=== PATIENT | female | born 1985 | race Caucasian/White ===

== ENCOUNTER 2016-10-29 10:51 | Emergency (ER) | payer OTHER ==
[~2016-10-29] VITALS: Ht 157.5 cm; Wt 79.0 kg
[2016-10-29 10:56] VITALS: Ht 157.5 cm; Wt 79.0 kg
--- NOTE | 2016-10-29 11:48 | RADRPT ---
PROCEDURE: XR Chest PA CLINICAL INDICATION: Possible pneumonia TECHNIQUE: An PA radiograph of the chest was submitted. COMPARISON: None. FINDINGS: Cardiovascular: The cardiovascular silhouette appears unremarkable. Lung Manzo: The lung manzo appear clear with no nodule, alveolar infiltrate, or interstitial promi nence evident. Pleural Spaces: There is no pneumothorax or pleural fluid accumulation evident. Osseous Structures: There is a mild levoscoliotic curve to the inferior thoracic spine. Soft Tissues: The soft tissues appear unremarkable. IMPRESSION: 1. The lung manzo and pleural spaces are clear. 2. Mild levoscoliotic curve to the inferior thoracic spine. Physician Kadie Date Time Electronically viewed and signed by Physician Kadie on 10/29/2016 11:47 /
--- NOTE | 2016-10-29 12:01 | ERD ---
ER Documentation Chief Complaint Date/Time DATE: 10/29/16 TIME: 11:59 Chief Complaint COUGH SINCE LAST NIGHT, NOT SMOKING X 3 DAYS HPI This is a 30-year-old female who presents to the emergency room for evaluation of a nonproductive cough for the past 24 hours. She states that she feels like she has a chills and states that she has not had a fever but does state that she felt warm last night. The patient states that she does smoke cigarettes however has not smoked in 3 days. She describes her cough is a dry cough with no exacerbating or relieving factor ROS All systems reviewed and are negative except as per history of present illness. PMhx/Soc Medical and Surgical Hx: pt denies Medical Hx, pt denies Surgical Hx Hx Alcohol Use: No Hx Substance Use: Yes (marijuana ) Hx Tobacco Use: Yes (quit 3 days ago) Smoking Status: Former smoker Physical Exam Vitals Vital Signs Date Time Temp Pulse Resp B/P Pulse Ox O2 Delivery O2 Flow Rate FiO2 10/29/16 10:56 98.3 79 18 131/79 99 Physical Exam Const: No acute distress Head: Atraumatic Eyes: Normal Conjunctiva ENT: Normal External Ears, Nose and Mouth. Neck: Full range of motion..~ No meningismus. Resp: Clear to auscultation bilaterally Cardio: Regular rate and rhythm, no murmurs Abd: Soft, non tender, non distended. Normal bowel sounds Skin: No petechiae or rashes Back: No midline or flank tenderness Ext: No cyanosis, or edema Neur: Awake and alert Psych: Normal Mood and Affect Procedures/MDM Chest X-ray 1V Interpreted by me: Soft Tissue: No acute abnormalities Bones: No acute abnormalities Mediastinum/Cardiac Silhouette/Lungs: [No acute abnormalities] Smoking Cessation Therapy: Pt. was lectured for greater than 3 minutes on the health risks of continued smoking and the benefits of cessation. This 20-year-old female presents to the ER for evaluation of a cough. Her x- ray does not reveal any signs of infiltrate however the patient is that she had chills and a cough. I did not auscultate any crackles on my examination however given the patient's symptoms I advised her that x-rays sometimes will not show a very acute sign of an infection. The patient will be discharged at this time with a prescription for Z-James with instructions to not fill the Z-James for 48 hours and if she is feeling better she can discard the prescription. Departure Diagnosis: Primary Impression: Cough Condition: Stable EFLICIA MIRANDA DO Oct 29, 2016 12:01
[2016-10-29] MEDS ORDERED: AZIT250T94 PO (12:02)
== END 2016-10-29 12:15 | disposition home or self-care (01) ==
LOC: FTE 10:51
DX: R05 Cough (principal); Z87.891 Personal history of nicotine dependence
CPT/HCPCS: 71010; Z7502